=== PATIENT | female | born 1990 | race Caucasian/White ===

== ENCOUNTER → 2016-05-13 | Outpatient (CLI) | payer OTHER | END | disposition home or self-care (01) | LOC: C.PAPS 10:03 | PROVIDERS: ATTEND Physician Assistant | DX: Z12.4 Encounter for screening for malignant neoplasm of cervix (principal) ==

== ENCOUNTER → 2016-10-01 | Outpatient (CLI) | payer OTHER ==
[2016-10-01 13:30] LABS: BASO % 0.9 %; BASO ABS # 0.08 K/uL (0-0.2); COMPLETE YES; EOS % 1.7 %; HEMATOCRIT 40.4 % (37-47); IG% 0.3 %; LYMPH % 23.2 %; LYMPH ABS # 2.07 K/uL (1.2-3.4); MEAN CELL VOLUME 86.9 fL (80-100); MEAN CORPUSCULAR HEMOGLOBIN 29.7 pg (25-34); MEAN CORPUSCULAR HGB CONC 34.2 g/dl (32-36); MEAN PLATELET VOLUME 9.2 fL (7.4-10.4); NEUT % 61.9 %; PLATELET COUNT 268 K/uL (130-400); RED BLOOD COUNT 4.65 M/uL (4.2-5.4); WHITE BLOOD COUNT 8.94 K/uL (4.8-10.8)
[2016-10-01 15:44] LABS: URINE APPEARANCE CLEAR (CLEAR); URINE BILIRUBIN NEG (NEG); URINE COLOR YELLOW; URINE NITRITE NEG (NEG); URINE PH 6.5 (4.5-7.5); URINE SPECIFIC GRAVITY 1.027 (1.000-1.030); UROBILINOGEN NEG (NEG)
[2016-10-01 15:47] LABS: MANUAL MICROSCOPIC REQUIRED? NO; REVIEW REQ? NO
== END | disposition home or self-care (01) ==
LOC: C.LAB1850 11:11
PROVIDERS: ATTEND Obstetrics & Gynecology
DX: Z34.01 Encounter for supervision of normal first pregnancy, first trimester (principal); O20.0 Threatened abortion

== ENCOUNTER → 2016-10-08 | Outpatient (CLI) | payer OTHER ==
[2016-10-10 03:02] LABS: CHLAMYDIA TRACH RNA*** NOT DETECTED (NOT DETECTED); GC (NEIS GONORRHOEAE)RNA** NOT DETECTED (NOT DETECTED)
== END | disposition home or self-care (01) ==
LOC: C.LABSPEC 11:09
PROVIDERS: ATTEND Obstetrics & Gynecology
DX: Z34.01 Encounter for supervision of normal first pregnancy, first trimester (principal)

== ENCOUNTER → 2016-12-01 | Outpatient (CLI) | payer OTHER ==
[2016-12-01 13:22] LABS: GTGD 50 Grams
== END | disposition home or self-care (01) ==
LOC: C.LAB1850 10:38
PROVIDERS: ATTEND Obstetrics & Gynecology
DX: Z34.02 Encounter for supervision of normal first pregnancy, second trimester (principal)

== ENCOUNTER → 2017-02-23 | Outpatient (CLI) | payer OTHER ==
[2017-02-23 13:27] LABS: HEMATOCRIT 32.5 % (37-47); HEMOGLOBIN 11.2 g/dL (12.0-16.0)
== END | disposition home or self-care (01) ==
LOC: C.LAB1850 11:32
PROVIDERS: ATTEND Obstetrics & Gynecology
DX: Z34.02 Encounter for supervision of normal first pregnancy, second trimester (principal); Z3A.00 Weeks of gestation of pregnancy not specified

== ENCOUNTER → 2017-04-28 | Outpatient (CLI) | payer OTHER | END | disposition home or self-care (01) | LOC: C.LABSPEC 13:41 | PROVIDERS: ATTEND Obstetrics & Gynecology | DX: Z34.03 Encounter for supervision of normal first pregnancy, third trimester (principal) ==

== ENCOUNTER 2017-05-21 07:12 | Inpatient (IN) | payer OTHER ==
[~2017-05-21] VITALS: Ht 170.2 cm; Wt 74.1 kg
[2017-05-21] MEDS ORDERED: SERT50TA PO (07:42)
[2017-05-21] MEDS ORDERED: PEDICHW44 (07:42)
[2017-05-21 07:44] VITALS: Ht 170.2 cm; Wt 74.1 kg
== END 2017-05-21 10:27 | disposition home or self-care (01) | DRG 782 ==
LOC: C.OPB 07:12 → C.LD 07:13 → C.OPB 08:03
PROVIDERS: ADMIT Obstetrics & Gynecology; ATTEND Obstetrics & Gynecology
DX: O48.0 Post-term pregnancy (principal); O62.2 Other uterine inertia; Z3A.40 40 weeks gestation of pregnancy

== ENCOUNTER 2017-05-24 00:45 | Outpatient (CLI) | payer OTHER ==
[~2017-05-24] VITALS: Ht 170.2 cm; Wt 73.9 kg
[~2017-05-24 00:45] MED LIST: PEDICHW44; SERT50TA PO
[2017-05-24 01:21] VITALS: Ht 170.2 cm; Wt 73.9 kg
--- NOTE | 2017-05-27 13:22 | EDITING REQUIRED CODING QUERY ---
DIAGNOSIS NEEDED To promote full compliance with coding requirements relating to patient care, physician participation is requested in all cases of shuttle repairer uncertainty. Please assist us with the question(s) below: Coding Question: The patient received care in labor and delivery on 05/24/17 as noted within the record. Please document the diagnosis that is being addressed by the medication/treatment. Provider Response: DIAGNOSIS: Labor check WEEKS OF GESTATION: 40 weeks Thank you for your assistance, Fatou Aleman - Chef Instructor
== END 2017-05-24 01:35 | disposition home or self-care (01) ==
LOC: C.OPB 00:45 → C.LD 00:45 → C.OPB 01:35
PROVIDERS: ATTEND Obstetrics & Gynecology
DX: Z34.03 Encounter for supervision of normal first pregnancy, third trimester (principal)

== ENCOUNTER 2017-05-24 12:35 | Inpatient (IN) | payer OTHER ==
[~2017-05-24] VITALS: Ht 170.2 cm; Wt 74.1 kg
[2017-05-24] MEDS ORDERED: LACTATED RINGER'S 1000ML 1,000 ML IV PRN (13:11)
[2017-05-24] MEDS ORDERED: MISOPROSTOLTAB 50 MCG TAB PO ONE (13:15)
[2017-05-24 14:04] LABS: HEMATOCRIT 33.8 % (37-47); HEMOGLOBIN 11.3 g/dL (12.0-16.0); MEAN CELL VOLUME 81.1 fL (80-100); MEAN CORPUSCULAR HEMOGLOBIN 27.1 pg (25-34); MEAN CORPUSCULAR HGB CONC 33.4 g/dl (32-36); MEAN PLATELET VOLUME 8.7 fL (7.4-10.4); PLATELET COUNT 141 K/uL (130-400); RED CELL DISTRIBUTION WIDTH CV 13.4 % (11.5-14.5); RED CELL DISTRIBUTION WIDTH SD 39.9 fL (36.4-46.3); WHITE BLOOD COUNT 12.93 K/uL (4.8-10.8)
[2017-05-24 14:15] VITALS: Ht 170.2 cm; Wt 74.1 kg
[2017-05-24] MEDS: LACTATED RINGER'S 1000ML 1,000 ML IV SCH ×2 (15:38→20:34)
[2017-05-24] MEDS ORDERED: BUTORPHANOL TARTRATE 1 MG/ML VIAL ONE (15:59)
[2017-05-24] MEDS ORDERED: BUTORPHANOL TARTRATE 1 MG/ML VIAL IV ONE (16:00)
[2017-05-24] MEDS ORDERED: LACTATED RINGER'S 1000ML 500 ML IV PRN ×2 (17:58→19:02)
[2017-05-24] MEDS ORDERED: EpHEDrine SULFATE INJ 50 MG/ML AMP ONE (17:59)
[2017-05-24] MEDS ORDERED: BUPIVACAINE 0.25% 30 ML VIAL ONE (17:59)
[2017-05-24] MEDS ORDERED: OXYTOCIN 30 UNITS/500ML NSS IV PRN (18:00)
[2017-05-24] MEDS ORDERED: FENTANYL CITRATE INJ 50 MCG/1 ML 2 ML VIAL ONE (18:00)
[2017-05-24] MEDS ORDERED: FENTANYL 2MCG/ML ROPIV 1.25MG/ML 100ML BAG EPI ONE (18:01)
[2017-05-24] MEDS ORDERED: NALOXONE HCL INJ 1 MG in SODIUM CHLORIDE 0.9% 1000ML 1,000 ML IV PRN (19:02)
[2017-05-24] MEDS ORDERED: NALOXONE HCL INJ 0.4 MG/1 ML VIAL/CARP IV PRN (19:15)
[2017-05-24] MEDS ORDERED: NALBUPHINE HCL INJ 10 MG/ML AMP IV PRN (19:15)
[2017-05-24] MEDS ORDERED: DiphenhydrAMINE HCL 50 MG/ML VIAL IV PRN (19:15)
[2017-05-24] MEDS ORDERED: EpHEDrine SULFATE INJ 50 MG/ML AMP IV PRN (19:15)
[2017-05-24] MEDS: ONDANSETRON INJ 2 MG/ML 2 ML VIAL IV PRN (22:26)
[2017-05-24] MEDS: FENTANYL 2MCG/ML ROPIV 1.25MG/ML 100ML BAG EPI PRN (22:57)
[2017-05-25] MEDS: FENTANYL 2MCG/ML ROPIV 1.25MG/ML 100ML BAG EPI PRN ×3 (02:49→08:21)
[2017-05-25] MEDS ORDERED: NURSING VERBAL MED ORDER ONE ×2 (03:00→04:45)
[2017-05-25] MEDS: LACTATED RINGER'S 1000ML 1,000 ML IV SCH (05:35)
[2017-05-25] MEDS: ONDANSETRON INJ 2 MG/ML 2 ML VIAL IV PRN (06:44)
[2017-05-25] MEDS ORDERED: BUPIVACAINE 0.25% 30 ML VIAL ONE (07:02)
[2017-05-25] MEDS ORDERED: LANOLIN OINT EXT PRN (13:15)
[2017-05-25] MEDS ORDERED: SUPERCREAM 0.870 % 15GM JAR EXT PRN (13:15)
[2017-05-25] MEDS ORDERED: OXYCODONE/ACETAMINOPHEN 5-325 TAB PO PRN (13:15)
[2017-05-25] MEDS ORDERED: ACETAMINOPHEN 325 MG TAB PO PRN (13:15)
[2017-05-25] MEDS ORDERED: OXYTOCIN 30 UNITS/500ML NSS IV PRN (13:15)
[2017-05-25] MEDS ORDERED: BENZOCAINE 20% AER SPR 82.5 GM CAN EXT PRN (13:15)
--- NOTE | 2017-05-25 13:34 | Anesthesia Procedure Note ---
Anesthesia Epidural Removal Nt Date & Time May 25, 2017 at 13:34 Vital Signs Pain Intensity: 0.0 Notes Mental Status: alert / awake / arousable, participated in evaluation Nausea / Vomiting: adequately controlled Pain: adequately controlled Airway Patency, RR, SpO2: stable & adequate BP & HR: stable & adequate Hydration State: stable & adequate Neuraxial Anesthesia: was administered, sensory block is resolving Anesthetic Complications: no major complications apparent, pt satisfied with anesthetic care Epidural: removed without complications, with tip intact
--- NOTE | 2017-05-25 14:03 | DELIVERY SUMMARY ---
DATE OF OPERATION: 05/25/2017 Patient is a 27-year-old 1, P0 white female, EDC of 05/19/2017 who had several days of prodromal labor. On approximately 10:45 on 05/24/2017, she ruptured membranes. She received Cytotec initially for induction of labor as her cervix was only a fingertip dilated. She then received Pitocin augmentation of her labor and then epidural analgesia. She progressed to full dilation. She pushed effectively over intact perineum for delivery of a viable male infant. The double nuchal cord were clamped and cut prior to delivering the rest of the . There was also a body cord noted. The rest of the delivered easily. Mouth and nasopharynx were suctioned. The was not vigorous and was placed on the baby bed for further stimulation and evaluation. The placenta was expressed intact with the 3-vessel cord. There was a significant amount of meconium following delivery of the baby. The second degree perineal laceration was repaired with 3-0 chromic in the usual fashion. Estimated blood loss was 300 mL. The bladder was emptied for approximately 100 mL of clear urine. Mother and were then doing well. After delivery, the baby was taken to the nursery for further evaluation. I attest to the content of the Intraoperative Record and any orders documented therein. Any exceptions are noted below. ISELAD
[2017-05-25 16:45] VITALS: BP 135/79; PULSE 100; TEMP 36.3
[2017-05-25] MEDS: IBUPROFEN 600 MG TAB PO PRN ×2 (16:46→21:11)
[2017-05-25 20:45] VITALS: BP 109/71; PULSE 81; TEMP 36.6
[2017-05-25] MEDS: DOCUSATE SODIUM 100 MG CAP PO SCH (21:11)
[2017-05-25 23:40] VITALS: BP 113/70; PULSE 89; TEMP 36.6
[2017-05-26] MEDS: IBUPROFEN 600 MG TAB PO PRN ×4 (03:17→20:05)
[2017-05-26 03:35] VITALS: BP 112/75; PULSE 89; TEMP 36.5
--- NOTE | 2017-05-26 07:18 | Progress Note ---
Subjective May 26, 2017. Subjective conversation w/ patient, conversation w/ family, physical exam, chart review, lab review Ambulation: ambulating normally Voiding: no voiding problems Passing Gas: Yes Diet Tolerance: Regular Diet Lochia: Small Feeding Type: Breast Feeding Review of Systems Constitutional: No fever Respiratory: No cough, No shortness of breath Cardiac: No chest pain Abdomen: No pain, No nausea, No vomiting Female : No dysuria Objective Vital Signs Date Time Temp Pulse Resp B/P (MAP) Pulse Ox O2 Delivery O2 Flow Rate FiO2 05/26/17 03:35 36.5 89 16 112/75 (87) Room Air 05/25/17 23:40 Room Air 05/25/17 23:40 36.6 89 16 113/70 (84) Room Air 05/25/17 20:45 36.6 81 18 109/71 (84) Room Air 05/25/17 16:45 36.3 100 16 135/79 (97) Room Air 05/25/17 16:45 Room Air Physical Exam General Appearance: WELL-APPEARING, WD/WN, NO APPARENT DISTRESS Respiratory/Chest: lungs clear, no respiratory distress Cardiovascular: regular rate, rhythm, no murmur Abdomen: non tender, soft Fundus: Firm, Relation to Umbilicus (1 below the u) Extremities: non-tender, normal inspection Laboratory Results Last 24 Hours Test 05/26/17 07:01 Assessment and Plan Post- Day#: 1 Continue Routine Care: Resident Physician Supervision Note: I interviewed and examined the patient. Discussed with Dr. Pagan and agree with findings and plan as documented in the note. Any exceptions or clarifications are listed here: [None] Documented By: Caitlin Santoro Ramila 28, F, , A+/GBS-/RI, vaginal delivery, PPD1. Reviewed vitals, WNL. Patient is doing well clinically. No signs or sx of anemia Plan 1. Cont. pp care; ambulate, control pain, support BF, monitor lochia 2. Depression--cont. Zoloft 50mg
[2017-05-26 07:42] LABS: HEMATOCRIT 28.4 % (37-47); HEMOGLOBIN 9.6 g/dL (12.0-16.0)
[2017-05-26] MEDS: PRENATAL VITAMIN TAB PO SCH (08:03)
[2017-05-26] MEDS: DOCUSATE SODIUM 100 MG CAP PO SCH ×2 (08:03→20:04)
[2017-05-26 08:50] VITALS: BP 128/83; PULSE 89; TEMP 37; O2SAT 100
[2017-05-26 11:40] VITALS: BP 113/67; PULSE 84; TEMP 37.1; O2SAT 97
[2017-05-26 15:45] VITALS: BP 122/74; PULSE 87; TEMP 36.9
[2017-05-26] MEDS ORDERED: SERTRALINE HCL 50 MG TAB PO SCH ×2 (17:30→20:00)
[2017-05-26] MEDS ORDERED: NURSING VERBAL MED ORDER ONE (17:45)
[2017-05-26] MEDS ORDERED: BISACODYL 5 MG TABEC PO SCH (20:00)
[2017-05-27 00:05] VITALS: BP 130/77; PULSE 67; TEMP 36.6
[2017-05-27] MEDS: IBUPROFEN 600 MG TAB PO PRN ×3 (00:10→08:44)
--- NOTE | 2017-05-27 06:58 | Progress Note ---
Subjective May 27, 2017. Subjective conversation w/ patient, conversation w/ family, physical exam, chart review, lab review Ambulation: ambulating normally Voiding: no voiding problems Passing Gas: Yes Diet Tolerance: Regular Diet Lochia: Small Feeding Type: Breast Feeding Review of Systems Constitutional: No fever, No chills Respiratory: No cough, No sputum, No shortness of breath Cardiac: No chest pain, No palpitations Abdomen: No pain, No nausea, No vomiting Female : No dysuria Objective Vital Signs Date Time Temp Pulse Resp B/P (MAP) Pulse Ox O2 Delivery O2 Flow Rate FiO2 05/27/17 00:05 36.6 67 18 130/77 (94) Room Air 05/27/17 00:05 Room Air 05/26/17 15:45 36.9 87 16 122/74 (90) Room Air 05/26/17 15:45 Room Air 05/26/17 11:40 37.1 84 18 113/67 (82) 97 Room Air 05/26/17 08:50 37.0 89 18 128/83 (98) 100 Room Air 05/26/17 08:50 100 Room Air Physical Exam General Appearance: WELL-APPEARING, WD/WN, NO APPARENT DISTRESS Respiratory/Chest: lungs clear, no respiratory distress Cardiovascular: regular rate, rhythm, no murmur Abdomen: non tender, soft Fundus: Firm, Relation to Umbilicus (at the level of the u) Extremities: non-tender, normal inspection Laboratory Results Last 24 Hours Test 05/26/17 07:01 Hemoglobin 9.6 g/dL Hematocrit 28.4 % Medications Current Inpatient Medications Medications (Trade) Dose Ordered Sig/Philippe Route Start Time Stop Time Status Last Admin Dose Admin Oxytocin (Pitocin IV) 30 units UD PRN IV 05/24/17 18:00 06/23/17 17:59 05/24/17 19:15 30 UNITS Lactated Ringer's 500 ml @ 999 mls/hr Q31M PRN IV 05/24/17 17:58 06/23/17 17:57 Oxytocin (Pitocin IV) 30 units UD PRN IV 05/25/17 13:15 06/24/17 13:14 Benzocaine (Dermoplast Aero Spr) 1 appln PRN PRN EXT 05/25/17 13:15 06/24/17 13:14 05/25/17 16:45 1 APPLN Cocaine HCl (Supercream 0.870% Cr) BID PRN EXT 05/25/17 13:15 06/08/17 13:14 Lanolin (Lanolin Oint) PRN PRN EXT 05/25/17 13:15 06/24/17 13:14 Prenat Multivit/ Smoke Rise/Iron/Folic Ac ( Vitamin Tab) 1 tab DAILY PO 05/26/17 08:00 06/25/17 07:59 05/26/17 08:03 1 TAB Ibuprofen (Motrin Tab) 600 mg Q4H PRN PO 05/25/17 13:15 06/24/17 13:14 05/27/17 04:33 600 MG Acetaminophen (Tylenol Tab) 650 mg Q6H PRN PO 05/25/17 13:15 06/24/17 13:14 Oxycodone/ Acetaminophen (Percocet 5-325mg Tab) 1 tab Q4H PRN PO 05/25/17 13:15 06/08/17 13:14 Docusate Sodium (coLACE CAP) 100 mg BID PO 05/25/17 20:00 06/24/17 19:59 05/26/17 20:04 100 MG Sertraline HCl (Zoloft Tab) 50 mg DAILY@1999 PO 05/26/17 20:00 06/25/17 19:59 05/26/17 20:05 50 MG Assessment and Plan Post- Day#: 2 Continue Routine Care: 28, F, , A+/GBS-/RI, vaginal delivery, PPD2. Reviewed vitals, WNL. Patient is doing well clinically. No signs or sx of anemia Plan 1. Cont. pp care; ambulate, control pain, support BF, monitor lochia 2. Depression--reduce dose of Sertraline to 25 mg according to recommendations of pt's PCP. PCP will titrate up in the outpatient if ness. 3. Discussed dc planning with the patient Resident Physician Supervision Note: I interviewed and examined the patient. Discussed with Dr. Pagan and agree with findings and plan as documented in the note. Any exceptions or clarifications are listed here: [None] Documented By: Helena Washburn
[2017-05-27] MEDS ORDERED: SERT25TA PO (07:01)
--- NOTE | 2017-05-27 07:02 | Discharge Instructions ---
Discharge Instructions Date of Service May 27, 2017. Admission Reason for Admission: Check Repture Of Membrances Discharge Discharge Diagnosis / Problem: vaginal delivery Discharge Goals Goal(s): Routine recovery after delivery Medications Continue Dispensed Medications: supercream, dermaplast, tucks, lansinoh Activity Recommendations Activity Limitations: per Instructions/Follow-up section . Instructions / Follow-Up Instructions / Follow-Up ACTIVITY RECOMMENDATIONS: * Gradual return to full activity over the next 2-3 weeks. * No lifting - nothing heavier than baby over the next 2-3 weeks. * Do not engage in vigorous exercise, sexual activity or sports until cleared by your physician. * Do not drive or operate any motorized equipment until cleared by your physician. * You may shower/bathe daily. MEDICATIONS: For discomfort or pain, you may use Acetaminophen (Tylenol), Ibuprofen (Advil), or Naproxen (Aleve) following the package directions. For constipation you may use Colace following the package directions. BREAST CARE: If you are not breast feeding: * Wear a supportive bra 24 hours a day for one to two weeks. * Avoid stimulating your breasts and nipples as much as possible during the first few weeks after delivery. * When taking a shower, have the warm water hit your back, not breasts. * When your breasts feel full, apply ice packs. Usually three to four times a day helps ease the discomfort. * Take a mild pain medication (Tylenol / Motrin) when you are uncomfortable. If breast feeding: * Use breast milk to lubricate nipples. Lansinoh cream may be used for sore nipples. You do not need to remove cream prior to breast feeding. If using a different brand of cream, check the label for directions regarding removal of cream prior to nursing. * Wear a supportive bra. * If having problems with breasts or breast feeding, call a moving consultant or your health care provider. EPISIOTOMY CARE: After delivery, if you have an episiotomy (stitches), the following steps will ease discomfort and aid healing. * For the first 24 hours after delivery, place ice packs next to your episiotomy to help reduce swelling. * After the first 24 hour-period, sitz baths, either portable or in the tub, are suggested. A shower with a shower arm sprayed over the episiotomy may be comforting. * Winifred care should be done after each voiding and bowel movement. Squirt warm water from a plastic bottle over the perineum (region of the body between the anus and urinary opening) and pat dry. * Use Dermoplast to ease discomfort. Shake container. [place] directly over the episiotomy. Place a Tucks on a clean sanitary pad next to your episiotomy. SPECIAL CARE INSTRUCTIONS: When you are discharged from the hospital, it is important for you to follow the instructions listed below: * During the first week at home, you should be able to care for yourself and your baby. In addition, the usual light household activities are encouraged. * Limit your activities to the way you feel. Do not try to clean the house or move furniture. Be sensible. * If you actively engage in sports and have done so up until the time of your delivery, you may resume these activities as soon as you feel able. This may take up to one month or even longer. Use good judgment. * Continue to take your vitamins for at least six weeks after the of your baby. * Your diet need not be limited unless you were on a special diet before your delivery. Breast-feeding mothers need around 2500 calories per day and at least 64-80 ounces of fluid per day (8 to 10 glasses). * You should eat foods from the four major food groups. Crash diets or fad diets are to be avoided. Eating lean meats, fresh fruits and vegetables, low-fat dairy products, high fiber foods and a regular exercise program, will help you get back to your pre- weight without putting your health at risk. * Constipation is sometimes a problem after delivery. Take a mild laxative as needed. If breast feeding, Milk of Magnesia is acceptable to use. You may use a suppository or Fleets enema if no episiotomy. * A daily shower or tub bath is suggested. Be sure to thoroughly and gently dry the perineum. * A bloody vaginal discharge will usually continue until around four weeks post . A small amount of bleeding may continue for as long as six weeks. Vaginal discharge changes from the bright red bleeding after delivery to pink then brownish and finally yellowish-pink before becoming white and disappearing. * Bleeding may increase with activity. Your first period may come in 4-8 weeks. If you are breast feeding, your period may be delayed even longer. * Spur (sex) can begin whenever both you and your partner feel comfortable and do not have any form of genital infection. It is recommended that you wait at least six weeks for internal and external healing to occur. If you have questions, please talk to your health care practitioner. A condom should be used to prevent infection and . * Foreplay, gentle intercourse and lubrication is very important the first several times to prevent pain. A water-based lubricant such as K-Y jelly or Astroglide may be used. * If you have RH negative blood and your baby is RH positive, you will receive RHOGAM by injection prior to discharge. The nurse will give you a card to keep with you that has the date and place that you received RHOGAM after delivery. * During your care, you had a Rubella screen done to check for the presence of rubella antibodies in your blood. If your test was negative, you will receive a Rubella vaccine prior to discharge. This vaccine may cause a fever, soreness at the injection site and flu-like symptoms. If these symptoms persist, notify your health care practitioner. is not advised for one month after a Rubella vaccine. * Verbalizes understanding of car seat law as reviewed with patient nursing. * Car Seat hand-out given and reviewed with patient by nursing. * Shaken baby information reviewed with patient by nursing. Call you doctor if: * Heavy bleeding (saturating several pads an hour) or passing clots the size of your fist. * A fever >101 degrees F (38.3 degrees C) on two occasions four hours apart and /or chills. * Unusual pain in the pelvic or vaginal areas. * "Baby Blues" lasting longer than two weeks. If you have any questions or concerns, call your health care practitioner at . FOLLOW UP VISIT: * Please call the office at to schedule a 6 week examination. It is important you keep this appointment. It is important for you to make arrangements for either yearly or twice yearly check-ups thereafter. Current Hospital Diet Patient's current hospital diet: Regular OB Diet Discharge Diet Recommended Diet: Regular Diet, Regular OB Diet Pending Studies Studies pending at discharge: no Medical Emergencies . Who to Call and When: Medical Emergencies: If at any time you feel your situation is an emergency, please call 911 immediately. . Non-Emergent Contact Non-Emergency issues call your: Primary Care Provider, Train Director . . "Provider Documentation" section prepared by Tung Pagan. .
[2017-05-27 07:48] VITALS: BP 120/78; PULSE 72; TEMP 37; O2SAT 98
[2017-05-27 08:00] VITALS: O2SAT 98
[2017-05-27] MEDS: PRENATAL VITAMIN TAB PO SCH (08:42)
[2017-05-27] MEDS: DOCUSATE SODIUM 100 MG CAP PO SCH (08:43)
== END 2017-05-27 14:50 | disposition home or self-care (01) | DRG 775 ==
LOC: C.OPB 12:35 → C.LD 12:36 → C.OPB 13:13 → C.LD 13:13 → C.OBG 05-25 16:44
PROVIDERS: ADMIT Obstetrics & Gynecology; ATTEND Obstetrics & Gynecology
PROC: 0KQM0ZZ Repair Perineum Muscle, Open Approach (ICD-10-PCS; principal; 2017-05-25)
PROC: 10E0XZZ Delivery of Products of Conception, External Approach (ICD-10-PCS; principal; 2017-05-25)
DX: O76 Abnormality in fetal heart rate and rhythm complicating labor and delivery (principal); O69.81X0 Labor and delivery complicated by cord around neck, without compression, not applicable or unspecified; Z3A.41 41 weeks gestation of pregnancy; Z37.0 Single live birth; O70.1 Second degree perineal laceration during delivery; F32.9 Major depressive disorder, single episode, unspecified; O99.344 Other mental disorders complicating childbirth